=== PATIENT | female | born 1990 | race Hispanic/Latino ===

== ENCOUNTER 2018-07-10 06:56 | Outpatient (CLI) | payer OTHER ==
--- NOTE | 2018-07-10 09:20 | ULT ---
THYROID ULTRASOUND: Date: 07/10/18 PROVIDED CLINICAL HISTORY: Enlarged thyroid. FINDINGS: Right thyroid lobe measures about 3.4 x 1.2 x 1.4 cm and demonstrates no focal abnormality. Left thyroid lobe measures about 3.4 x 1.1 x 1.3 cm and demonstrates no focal abnormality. IMPRESSION: No focal thyroid abnormality is evident. POS: [facility]
== END 2018-07-10 06:57 | disposition home or self-care (01) ==
LOC: SCSULT 06:56
DX: E01.0 Iodine-deficiency related diffuse (endemic) goiter (principal)
CPT/HCPCS: 76536